=== PATIENT | female | born 1965 | race Caucasian/White ===

== ENCOUNTER → 2017-11-08 | Day surgery (SDC) | payer MEDICARE, OTHER ==
[~2017-11-08] MED LIST: ADVAIR 100-501 EACH IN; DEPAKOTE500 MG PO; FENTANYL CITRATE/PF 100MCG/2 ML INJ ONE; GABAPENTIN300 MG PO; HYOSCYAMINE SULFATE 0.5 MG/ML AMP ONE; LEVOTHYROXINE112 MCG PO; LIDOCAINE HCL 2% LOCAL INJ 5 ML SDV VIAL INJ ONE; METFORMIN HCL500 MG PO; MIDAZOLAM HCL 2 MG/2 ML VIAL ONE; PANTOPRAZOLE SO40 MG PO; PROAIR HFA INH8.5 GM INH; PROPOFOL IV EMULSION 10 MG/ML 50 ML VIAL ONE; SYMBICORT 80-10.2 GM INH; ZOLOFT100 MG PO
--- NOTE | 2017-11-08 15:35 | Operative Report ---
DATE OF PROCEDURE: November 08, 2017 REFERRING PHYSICIAN: Dr. Mario Sesay PROCEDURES PERFORMED 1. Esophagogastroduodenoscopy with esophageal dilatation and biopsies. 2. Colonoscopy with polypectomy. INDICATIONS FOR EGD: Epigastric pain, dysphagia to solids. INDICATIONS FOR COLONOSCOPY: Lower abdominal pain, personal history of colon polyps, poor prep on previous colonoscopy in 2017. MEDICATION: Patient was done under MAC. Please see anesthesiologist's note. PROCEDURE: With the patient in the left lateral decubitus position, the flexible fiberoptic Olympus gastroscope was introduced into the esophagus under direct visualization without any difficulty. There was some patchy erythema noted in the distal esophagus. A mild stricture was noted at the GE junction that was dilated to size 50-Malay Whitehead. The scope was then advanced with ease into the stomach. Mucosa overlying the antrum and the body revealed some patchy erythema and low-grade to moderate edema, and biopsies were obtained and sent to stain for H. pylori. Pylorus appeared to be of normal contour and shape. It was intubated with ease, and the scope was advanced all the way to the 2nd portion of the duodenum. An approximately 1-cm polypoid lesion was noted in the proximal 2nd portion that was biopsied. Also some mild inflammatory changes were noted in the duodenal bulb. The scope was then withdrawn back into the stomach and retroflexed. The mucosa overlying the fundus and the cardia appeared to be within normal limits. The scope was then straightened out. Stomach was decompressed. The scope was subsequently withdrawn. Patient tolerated the procedure well. IMPRESSION 1. Distal esophagitis, mild. 2. Esophageal stricture at gastroesophageal junction, mild, dilated to size 52-Malay Whitehead. 3. Gastritis, biopsied. Biopsies sent to stain for H. pylori. 4. Duodenitis. 5. Approximately 1-cm polypoid lesion in proximal 2nd portion, biopsied. PLAN: Follow up histology. Initiate Protonix 40 mg 1 p.o. q.a.m. a.c. The patient was then turned around. After adequate lubrication of the anal canal, a flexible fiberoptic Olympus colonoscope was inserted into the rectum with ease and advanced all the way to the cecum. It was then withdrawn slowly. Mucosa overlying the cecum, ascending, transverse, descending and sigmoid grossly appeared to be within normal limits. Two polyps were hot biopsied from the rectum. The scope was then retroflexed into the distal rectum, and small internal hemorrhoids were noted, none of which was actively bleeding. The scope was then straightened out. It was subsequently withdrawn. Patient tolerated the procedure well. IMPRESSION 1. Rectal polyps times 2, hot biopsied. 2. Internal hemorrhoids, none actively bleeding. PLAN: Follow up histology. Initiate high-fiber, low-fat diet. Initiate high-fiber supplement. Start VSL #3 one p.o. daily. Check TSH. Patient might benefit from a followup colonoscopy in 3 years. Job#: [id number] cc:MARIO SESAY MD
== END | disposition home or self-care (01) ==
LOC: OR 10:50
PROVIDERS: ATTEND Internal Medicine Gastroenterology
DX: K29.70 Gastritis, unspecified, without bleeding (principal); K62.1 Rectal polyp; K31.7 Polyp of stomach and duodenum; K22.2 Esophageal obstruction; K29.80 Duodenitis without bleeding; K59.00 Constipation, unspecified; K20.9 Esophagitis, unspecified; K64.8 Other hemorrhoids; J44.9 Chronic obstructive pulmonary disease, unspecified; E11.9 Type 2 diabetes mellitus without complications; E03.9 Hypothyroidism, unspecified; B19.20 Unspecified viral hepatitis C without hepatic coma; F31.9 Bipolar disorder, unspecified; Z88.6 Allergy status to analgesic agent; Z88.8 Allergy status to other drugs, medicaments and biological substances; Z91.048 Other nonmedicinal substance allergy status; Z01.810 Encounter for preprocedural cardiovascular examination; Z79.84 Long term (current) use of oral hypoglycemic drugs; Z86.73 Personal history of transient ischemic attack (TIA), and cerebral infarction without residual deficits; Z80.0 Family history of malignant neoplasm of digestive organs
CPT/HCPCS: 36415; 43239; 43450; 45384; 82948; 84443; 93005; J1980; J2001; J2250; 45378

== ENCOUNTER → 2019-05-10 | Day surgery (SDC) | payer MEDICARE ==
[~2019-05-10] MED LIST changes: -FENTANYL CITRATE/PF 100MCG/2 ML INJ ONE; +HYOSCYAMINE 0.125 MG TAB ONE; -HYOSCYAMINE SULFATE 0.5 MG/ML AMP ONE; +MIRALAX17 GM PO
--- OUTSIDE RECORDS SUMMARY | 2019-05-10 10:13 | XMS REPORT | Summary of Care ---
Author Author [facility] Address [address] [place] [address] Phone Unavailable Care Team Providers Care Convolute Tube Winder Name Role Phone RADHA ACEVEDO M.D. Unavailable Unavailable ROHAN SAEED MD Unavailable Unavailable Unavailable Unavailable Functional Status Name Dates Details Functional status health issues are not documented Status: Name Dates Details Cognitive status health issues are not documented Status: Problems Name Dates Details Joint pain of lower extremity (719.48, M25.50) Status: Active Pain involving joint of finger of left hand (719.44, M25.542) Status: Active Displaced fracture of phalanx of left little finger (816.00, S62.607A) Status: Active Pain, hand (729.5, M79.643) Status: Active Bilateral carpal tunnel syndrome (354.0, G56.03) Status: Active Patellar tendinitis of left knee (726.64, M76.52) Status: Active Cigarette smoker (305.1, F17.210) Status: Active Medications Name Dates Details Voltaren 1 % Transdermal Gel APPLEY TO AFFECTED AREA TWICE DAILY Quantity: 3 RADHA ACEVEDO M.D. * Start : 22-Mar-2016 Active 100 GM Tube (3 Tubes) Meloxicam 7.5 MG Oral Tablet TAKE 1 TABLET DAILY NEEDED. * Quantity: 30 Refills: 0 RADHA ACEVEDO M.D. * Start : 22-Mar-2016 Active Allergies and Adverse Reactions Name Dates Details Demerol TABS (Allergy) Status: Active [place] Carbonate CAPS (Allergy) Status: Active Morphine Derivatives (Allergy) Status: Active Past Medical History Name Dates Details History of Diabetes (250.00, E11.9) Status: Resolved Procedures Procedure Dates Details Procedures not documented Immunization Name Dates Details Immunizations not documented Social History Name Dates Details - Status: Name Dates Details Current every day smoker Vital Signs Date Test Result Details No Known Vitals to report Results Date Description Value Details Results not documented Plan of Care Name Dates Details Planned Observations Planned Goals not documented Instructions Name Dates Details Instructions not documented Encounters No Encounter data documented Encounter Diagnosis: Problem not documented On: 04-May-2019
--- OUTSIDE RECORDS SUMMARY | 2019-05-10 10:13 | XMS REPORT | Summary of Care ---
Author Author [facility] Address [address] [place] [address] Phone Unavailable Care Team Providers Care Elevator Serviceman Name Role Phone RADHA ACEVEDO M.D. Unavailable Unavailable ROHAN SAEED MD Unavailable Unavailable Unavailable Unavailable Functional Status Name Dates Details Functional status health issues are not documented Status: Name Dates Details Cognitive status health issues are not documented Status: Problems Name Dates Details Joint pain of lower extremity (719.48, M25.50) Status: Active Bilateral carpal tunnel syndrome (354.0, G56.03) Status: Active Cigarette smoker (305.1, F17.210) Status: Active Patellar tendinitis of left knee (726.64, M76.52) Status: Active Pain, hand (729.5, M79.643) Status: Active Pain involving joint of finger of left hand (719.44, M25.542) Status: Active Displaced fracture of phalanx of left little finger (816.00, S62.607A) Status: Active Medications Name Dates Details Meloxicam 7.5 MG Oral Tablet TAKE 1 TABLET DAILY NEEDED. Quantity: 30 RADHA ACEVEDO M.D. * Start : 22-Mar-2016 Active Voltaren 1 % Transdermal Gel APPLEY TO AFFECTED AREA TWICE DAILY * Quantity: 3 Refills: 0 RADHA ACEVEDO M.D. * Start : 22-Mar-2016 Active 100 GM Tube (3 Tubes) Allergies and Adverse Reactions Name Dates Details Demerol TABS (Allergy) Status: Active [place] Carbonate CAPS (Allergy) Status: Active Morphine Derivatives [...] documented Encounter Diagnosis: Problem not documented On: 06-May-2019
[2019-05-10 15:15] VITALS: BP 130/82
--- NOTE | 2019-05-10 23:17 | Operative Report ---
DATE OF PROCEDURE: 05/10/2019 SURGEON: Shashank Issa MD PROCEDURE: EGD with biopsies and esophageal dilatation and colonoscopy with polypectomy. INDICATIONS FOR EGD: Dysphagia, heartburn, bloating. INDICATIONS FOR COLONOSCOPY: Colorectal cancer screening, father with colon cancer, personal history of colon polyps. MEDICATIONS: The patient was done under MAC, please see anesthesiologist's note. PROCEDURE IN DETAIL: With the patient left lateral decubitus position, a flexible fiberoptic Olympus gastroscope was introduced into the esophagus under direct visualization without any difficulty. There was some patchy erythema noted in distal esophagus. A mild stricture was noted at the GE junction that was dilated to size 52-[place] Whitehead. The scope was then advanced with ease into the stomach. Mucosa overlying the antrum and the body revealed some patchy erythema and low-grade to moderate edema, and biopsies were obtained and sent to stain for H pylori. The pylorus was of normal contour and shape, was intubated with ease and the scope, was advanced all the way to the second portion of the duodenum. Biopsies were obtained from the proximal second portion and duodenal bulb to rule out sprue. The scope was then withdrawn back into the stomach and retroflexed mucosa overlying the fundus and the cardia appeared to be within normal limits. The scope was then straightened out it was subsequently withdrawn, patient tolerated procedure well. IMPRESSION: 1. Distal esophagitis. 2. Gastritis, biopsied, biopsies sent to stain for H pylori. 3. Rule out sprue. PLAN: Follow up histology. Increase Protonix to 40 mg one p.o. a.c. b.i.d. The patient was then turned around after adequate lubrication of the anal canal. A flexible fiberoptic Olympus colonoscope was inserted into the rectum with ease and advanced all the way to the cecum. The prep overall was suboptimal to poor with [id number] amount of retained fecal material in the colon. The scope was then withdrawn slowly whatever was visualized, the mucosa overlying the cecum, ascending colon, transverse colon, descending colon as well as the sigmoid colon appeared to be within normal limits. One polyp was removed per snare electrocautery. One polyp was removed per hot biopsy forceps in the rectum. The scope was then retroflexed into the distal rectum and small internal hemorrhoids were noted, none of which was actively bleeding. The scope was then straightened out, it was subsequently withdrawn, patient tolerated procedure well. Impression: 1. Suboptimal to poor prep. 2. Rectal polyps x2, one removed per snare electrocautery and one was removed per hot biopsy forceps. 3. Internal hemorrhoids none actively bleeding. Plan; follow up histology. Initiate high-fiber, low-fat diet. Initiate high-fiber supplement. The patient will need a followup colonoscopy after a better prep. Shashank Issa MD [facility] [place]/[facility] /[id number] cc: Ronak Corea MD
== END | disposition home or self-care (01) ==
LOC: OR 10:00
PROVIDERS: ATTEND Internal Medicine Gastroenterology
DX: K20.9 Esophagitis, unspecified (principal); K29.70 Gastritis, unspecified, without bleeding; K62.1 Rectal polyp; K64.8 Other hemorrhoids; K29.80 Duodenitis without bleeding; K21.9 Gastro-esophageal reflux disease without esophagitis; Z86.010 Personal history of colon polyps; Z80.0 Family history of malignant neoplasm of digestive organs; Z88.5 Allergy status to narcotic agent; Z88.8 Allergy status to other drugs, medicaments and biological substances; Z91.040 Latex allergy status; E11.9 Type 2 diabetes mellitus without complications; B19.20 Unspecified viral hepatitis C without hepatic coma; J44.9 Chronic obstructive pulmonary disease, unspecified; Z86.73 Personal history of transient ischemic attack (TIA), and cerebral infarction without residual deficits; Z68.28 Body mass index [BMI] 28.0-28.9, adult; K59.00 Constipation, unspecified
CPT/HCPCS: 36415; 43239; 45385; 82948; J2001; J2250; J2704; 43450; 45378; 45384

== ENCOUNTER → 2019-09-24 | Day surgery (SDC) | payer MEDICARE, OTHER ==
[~2019-09-24] MED LIST changes: +FENTANYL CITRATE/PF 100MCG/2 ML INJ ONE; -HYOSCYAMINE 0.125 MG TAB ONE; +LEVOTHYROXINE50 MCG PO; -LIDOCAINE HCL 2% LOCAL INJ 5 ML SDV VIAL INJ ONE; +OR PHACO EYE KIT ONE; +PREOP PHACO EYE KIT ONE; -PROPOFOL IV EMULSION 10 MG/ML 50 ML VIAL ONE
[2019-09-24 12:40] VITALS: BP 135/89
== END | disposition home or self-care (01) ==
LOC: OR 08:11
PROVIDERS: ATTEND Ophthalmology
DX: H25.11 Age-related nuclear cataract, right eye (principal); J44.9 Chronic obstructive pulmonary disease, unspecified; E11.9 Type 2 diabetes mellitus without complications; I10 Essential (primary) hypertension; E03.9 Hypothyroidism, unspecified; B19.20 Unspecified viral hepatitis C without hepatic coma; F31.9 Bipolar disorder, unspecified; F17.210 Nicotine dependence, cigarettes, uncomplicated; Z88.8 Allergy status to other drugs, medicaments and biological substances; Z88.6 Allergy status to analgesic agent; Z91.040 Latex allergy status; Z01.812 Encounter for preprocedural laboratory examination; Z11.59 Encounter for screening for other viral diseases; Z79.84 Long term (current) use of oral hypoglycemic drugs; Z86.73 Personal history of transient ischemic attack (TIA), and cerebral infarction without residual deficits
CPT/HCPCS: 36415; 82948; 87635; J2250; J3010

== ENCOUNTER → 2019-10-08 | Outpatient (CLI) | payer MEDICARE, OTHER ==
[~2019-10-08] MED LIST changes: -FENTANYL CITRATE/PF 100MCG/2 ML INJ ONE; -MIDAZOLAM HCL 2 MG/2 ML VIAL ONE; -OR PHACO EYE KIT ONE; -PREOP PHACO EYE KIT ONE
== END | disposition home or self-care (01) ==
LOC: DX 09:42 → EDSTATUS 10-11 07:30
PROVIDERS: ATTEND Internal Medicine Gastroenterology
DX: R14.0 Abdominal distension (gaseous) (principal); Z86.010 Personal history of colon polyps; Z80.0 Family history of malignant neoplasm of digestive organs; Z01.812 Encounter for preprocedural laboratory examination; Z11.59 Encounter for screening for other viral diseases; Z53.9 Procedure and treatment not carried out, unspecified reason
CPT/HCPCS: 87635

== ENCOUNTER → 2020-02-04 | Day surgery (SDC) | payer MEDICARE ==
[~2020-02-04] MED LIST changes: +ALBUTEROL0.63 MG/3 NEB; +FENTANYL CITRATE/PF 100MCG/2 ML INJ ONE; +GLUCAGON FOR INJ 1 MG VIAL ONE; +HYOSCYAMINE 0.125 MG TAB ONE; +LIDOCAINE HCL 2% LOCAL INJ 5 ML SDV VIAL INJ ONE; +MIDAZOLAM HCL 2 MG/2 ML VIAL ONE; +PROPOFOL IV EMULSION 10 MG/ML 20 ML VIAL ONE; +TRELEGY ELLIPT1 EACH INH; +TRULANCE3 MG PO
[2020-02-04 14:18] LABS: BASOPHILS # (AUTO) 0.2 (0.0-0.1); BASOPHILS % 1.7 % (0.0-1.0); EOSINOPHILS # (AUTO) 0.3 (0.0-0.4); EOSINOPHILS % 3.7 % (0.0-6.0); HEMATOCRIT 40.9 % (34.2-44.1); HEMOGLOBIN 13.1 g/dL (12.0-16.0); LYMPHOCYTES # (AUTO) 2.6 (1.0-3.2); LYMPHOCYTES % 29.8 % (18.0-39.1); MEAN CORPUSCULAR HEMOGLOBIN 29.5 pg (28-32); MEAN CORPUSCULAR VOLUME 92.1 fL (81-99); MONOCYTES # (AUTO) 0.5 (0.2-0.8); MONOCYTES % 5.5 % (4.4-11.3); NEUTROPHILS # (AUTO) 5.2 (2.1-6.9); NEUTROPHILS % 59.2 % (38.7-80.0); PLATELET COUNT 248 x10e3/uL (140-360); RED BLOOD COUNT 4.44 x10e6/uL (3.6-5.1); RED CELL DISTRIBUTION WIDTH 14.3 % (11.7-14.4)
[2020-02-04 16:10] VITALS: BP 104/80
== END | disposition home or self-care (01) ==
LOC: OR 13:37
PROVIDERS: ATTEND Internal Medicine Gastroenterology
DX: K59.00 Constipation, unspecified (principal); Z86.010 Personal history of colon polyps; K58.9 Irritable bowel syndrome, unspecified; K64.8 Other hemorrhoids; E11.9 Type 2 diabetes mellitus without complications; K21.9 Gastro-esophageal reflux disease without esophagitis; J44.9 Chronic obstructive pulmonary disease, unspecified; R01.0 Benign and innocent cardiac murmurs; F31.9 Bipolar disorder, unspecified; F41.9 Anxiety disorder, unspecified; F17.210 Nicotine dependence, cigarettes, uncomplicated; Z88.6 Allergy status to analgesic agent; Z91.040 Latex allergy status; Z91.048 Other nonmedicinal substance allergy status; Z79.84 Long term (current) use of oral hypoglycemic drugs; Z86.19 Personal history of other infectious and parasitic diseases; Z86.73 Personal history of transient ischemic attack (TIA), and cerebral infarction without residual deficits; Z80.0 Family history of malignant neoplasm of digestive organs
CPT/HCPCS: 36415; 45378; 82948; 85025; 93005; J1610; J2001; J2250; J2704; J3010